=== PATIENT | male | born 1945 | race Caucasian/White ===

== ENCOUNTER → 2016-07-04 | Outpatient (CLI) | payer MEDICARE | LOC: KOH-I 15:01 | DX: R05 Cough (principal); R06.02 Shortness of breath; R09.82 Postnasal drip | CPT/HCPCS: 71020 ==

== ENCOUNTER 2021-07-05 09:00 | Inpatient (IN) | payer OTHER, MEDICARE ==
[~2021-07-05] VITALS: Ht 162.6 cm; Wt 79.4 kg
[2021-07-05 10:42] LABS: HEMOGLOBIN 12.9 gm/dl (14.0-17.5); RED BLOOD COUNT 4.21 M/UL (4.20-5.50); WHITE BLOOD COUNT 9.6 K/UL (4.5-11.0)
[2021-07-05 11:11] LABS: BUN/CREATININE RATIO 5 (0-10)
[2021-07-05] MEDS ORDERED: BUDESONIDE-FO10.2 G1 INH (15:22)
[2021-07-05] MEDS ORDERED: FLONASE 0.05% N16 GM (15:22)
[2021-07-05] MEDS ORDERED: CLOPIDOGREL75 MG PO (15:22)
[2021-07-05] MEDS ORDERED: MONTELUKAST SOD10 MG PO (15:23)
[2021-07-05] MEDS ORDERED: METOPROLOL TAR100 MG PO (15:23)
[2021-07-05] MEDS ORDERED: CLINDAMYCIN PHO30 ML TOP (15:24)
[2021-07-05] MEDS ORDERED: OMEPRAZOLE20 MG PO (15:25)
[2021-07-05] MEDS ORDERED: METRONIDAZOLE45 GM TOP (15:25)
[2021-07-05] MEDS ORDERED: CARBIDOPA-LEVO1 EA14 PO (15:25)
[2021-07-05] MEDS ORDERED: ATORVASTATIN CA80 MG PO (15:26)
[2021-07-05] MEDS ORDERED: PRADAXA150 MG PO (15:26)
[2021-07-05] MEDS ORDERED: COZAAR50 MG PO (15:26)
[2021-07-05] MEDS ORDERED: HYDROCORTISON28.4 G9 TOP (15:27)
[2021-07-05] MEDS ORDERED: IPRAT-ALBUT 0.5-3 ML INH (15:28)
[2021-07-05] MEDS ORDERED: BENZONATATE100 MG PO (15:28)
[2021-07-05] MEDS ORDERED: VITAMIN D325 MCG PO (15:29)
[2021-07-05] MEDS ORDERED: B-121000 MCG PO (15:29)
[2021-07-05] MEDS ORDERED: ASPIRIN EC81 MG PO (15:30)
[2021-07-05] MEDS ORDERED: STIOLTO RESPIMAT4 GM INH (15:30)
[2021-07-06 06:32] LABS: HEMOGLOBIN 11.9 gm/dl (14.0-17.5); RED BLOOD COUNT 3.83 M/UL (4.20-5.50); WHITE BLOOD COUNT 8.5 K/UL (4.5-11.0)
[2021-07-06 07:04] LABS: BUN/CREATININE RATIO 3 (0-10)
[2021-07-06 14:23] LABS: ADENOVIRUS F 40/41 Not Detected (Negative); ASTROVIRUS Not Detected (Negative); CAMPYLOBACTER Not Detected (Negative); CRYPTOSPORIDIUM Not Detected (Negative); E.COLI 0157 Not Detected (Negative); ENTAMOEBA HISTOLYTICA Not Detected (Negative); ENTEROAGGREGATIVE E.COLI (EAEC Not Detected (Negative); ENTEROPATHOGENIC E.COLI (EPEC) Not Detected (Negative); ENTEROTOXIGENIC E.COLI (ETEC) Not Detected (Negative); GIARDIA LAMBLIA Not Detected (Negative); NOROVIRUS GI/GII Not Detected (Negative); PLESIOMONAS SHIGELLOIDES Not Detected (Negative); ROTOVIRUS A Not Detected (Negative); SALMONELLA Not Detected (Negative); SAPOVIRUS Not Detected (Negative); SHIG/ENTEROINVAS.ECOLI (EIEC) Not Detected (Negative); SHIGA-LIK TOX.PRO.E.COLI (STEC Not Detected (Negative); VIBRIO Not Detected (Negative); VIBRIO CHOLERAE Not Detected (Negative); YERSINIA ENTEROCOLITICA Not Detected (Negative)
[2021-07-07 06:07] LABS: RED BLOOD COUNT 3.57 M/UL (4.20-5.50); WHITE BLOOD COUNT 6.7 K/UL (4.5-11.0)
[2021-07-07 06:33] LABS: BUN/CREATININE RATIO 2 (0-10)
--- NOTE | 2021-07-07 10:00 | NUR ---
0800 NOTIFIED THAT PATIENT HAS CRITICAL POTASSIUM OF 2.8. ORDER RECEIVED FOR 80MEQ POTASSIUM PO NOW AND FOLLOW K[facility] PROTOCOL IV.
[2021-07-08 04:19] LABS: HEMOGLOBIN 11.4 gm/dl (14.0-17.5); RED BLOOD COUNT 3.69 M/UL (4.20-5.50); WHITE BLOOD COUNT 6.4 K/UL (4.5-11.0)
[2021-07-08 04:46] LABS: BUN/CREATININE RATIO 1 (0-10)
[2021-07-08] MEDS ORDERED: VANCOMYCIN HCL125 MG PO (12:12)
== END 2021-07-08 13:30 | disposition home or self-care (01) | DRG 373 ==
LOC: ER1 09:00 → MED SURG 4 14:41 → CDU 14:41 → MED SURG 4 20:46
PROVIDERS: Emergency Medicine; Physician Assistant; ADMIT Internal Medicine
DX: A04.72 Enterocolitis due to Clostridium difficile, not specified as recurrent (principal); Z20.822 Contact with and (suspected) exposure to COVID-19; I48.0 Paroxysmal atrial fibrillation; I25.10 Atherosclerotic heart disease of native coronary artery without angina pectoris; J44.9 Chronic obstructive pulmonary disease, unspecified; N28.1 Cyst of kidney, acquired; E78.5 Hyperlipidemia, unspecified; E87.6 Hypokalemia; I10 Essential (primary) hypertension; Z87.442 Personal history of urinary calculi; Z90.49 Acquired absence of other specified parts of digestive tract; Z98.890 Other specified postprocedural states; Z90.89 Acquired absence of other organs; Z95.5 Presence of coronary angioplasty implant and graft; Z88.2 Allergy status to sulfonamides; Z82.49 Family history of ischemic heart disease and other diseases of the circulatory system
CPT/HCPCS: 36415; 71045; 80048; 80053; 81001; 82550; 82553; 83605; 83690; 83735; 84100; 84132; 84484; 85025; 87040; 87324; 87449; 87507; 93005; 94640; 94664; 94760; 96374; 96375; 96376; 99285; G0378; J2270; J2405; J2543; J3475; J3480; J7030; J7040; Q9967; U0002

== ENCOUNTER 2021-07-30 08:06 | Inpatient (IN) | payer OTHER, MEDICARE ==
[~2021-07-30] VITALS: Ht 175.3 cm; Wt 75.0 kg
[~2021-07-30 08:06] MED LIST: ATORVASTATIN CA80 MG PO; B-121000 MCG PO; BENZONATATE100 MG PO; BUDESONIDE-FO10.2 G1 INH; CLINDAMYCIN PHO30 ML TOP; CLOPIDOGREL75 MG PO; COZAAR50 MG PO; FLONASE 0.05% N16 GM; HYDROCORTISON28.4 G9 TOP; METOPROLOL TAR100 MG PO; METRONIDAZOLE45 GM TOP; MONTELUKAST SOD10 MG PO; PRADAXA150 MG PO; VANCOMYCIN HCL125 MG PO; VITAMIN D325 MCG PO
[2021-07-30 08:45] LABS: HEMOGLOBIN 15.6 gm/dl (14.0-17.5); RED BLOOD COUNT 4.84 M/UL (4.20-5.50); WHITE BLOOD COUNT 9.9 K/UL (4.5-11.0)
[2021-07-30 09:12] LABS: BUN/CREATININE RATIO 9 (0-10)
[2021-07-30] MEDS ORDERED: CARBIDOPA-LEVO1 EA14 PO (15:25)
[2021-07-30] MEDS ORDERED: OMEPRAZOLE20 MG PO (15:25)
[2021-07-30] MEDS ORDERED: ALBUTEROL2.5 MG/3 M INH (15:28)
[2021-07-30] MEDS ORDERED: ASPIRIN EC81 MG PO (15:30)
[2021-07-30] MEDS ORDERED: STIOLTO RESPIMAT4 GM INH (15:30)
[2021-07-31 05:13] LABS: BUN/CREATININE RATIO 11 (0-10); HEMOGLOBIN 13.4 gm/dl (14.0-17.5); RED BLOOD COUNT 4.2 M/UL (4.20-5.50); WHITE BLOOD COUNT 21.1 K/UL (4.5-11.0)
[2021-07-31 20:14] LABS: ADENOVIRUS F 40/41 Not Detected (Negative); ASTROVIRUS Not Detected (Negative); CAMPYLOBACTER Not Detected (Negative); CRYPTOSPORIDIUM Not Detected (Negative); E.COLI 0157 Not Detected (Negative); ENTAMOEBA HISTOLYTICA Not Detected (Negative); ENTEROAGGREGATIVE E.COLI (EAEC Not Detected (Negative); ENTEROPATHOGENIC E.COLI (EPEC) Not Detected (Negative); ENTEROTOXIGENIC E.COLI (ETEC) Not Detected (Negative); GIARDIA LAMBLIA Not Detected (Negative); NOROVIRUS GI/GII Not Detected (Negative); PLESIOMONAS SHIGELLOIDES Not Detected (Negative); ROTOVIRUS A Not Detected (Negative); SALMONELLA Not Detected (Negative); SAPOVIRUS Not Detected (Negative); SHIG/ENTEROINVAS.ECOLI (EIEC) Not Detected (Negative); SHIGA-LIK TOX.PRO.E.COLI (STEC Not Detected (Negative); VIBRIO Not Detected (Negative); VIBRIO CHOLERAE Not Detected (Negative); YERSINIA ENTEROCOLITICA Not Detected (Negative)
[2021-08-01 04:33] LABS: HEMOGLOBIN 11.7 gm/dl (14.0-17.5)
[2021-08-01 04:41] LABS: RED BLOOD COUNT 3.69 M/UL (4.20-5.50); WHITE BLOOD COUNT 7.4 K/UL (4.5-11.0)
[2021-08-01 04:56] LABS: BUN/CREATININE RATIO 7 (0-10)
[2021-08-02 07:17] LABS: HEMOGLOBIN 11.8 gm/dl (14.0-17.5); RED BLOOD COUNT 3.64 M/UL (4.20-5.50); WHITE BLOOD COUNT 8.4 K/UL (4.5-11.0)
[2021-08-02 07:25] LABS: BUN/CREATININE RATIO 6 (0-10)
[2021-08-03 02:27] LABS: HEMOGLOBIN 11.2 gm/dl (14.0-17.5); RED BLOOD COUNT 3.54 M/UL (4.20-5.50); WHITE BLOOD COUNT 8.6 K/UL (4.5-11.0)
[2021-08-03 02:51] LABS: BUN/CREATININE RATIO 7 (0-10)
[2021-08-03] MEDS ORDERED: VANCOCIN 125 M125 MG PO (09:35)
[2021-08-03] MEDS ORDERED: ELIQUIS 5 MG TAB5 MG PO (09:35)
[2021-08-03] MEDS ORDERED: MULTAQ 400 MG400 MG PO (09:35)
== END 2021-08-03 13:38 | disposition home or self-care (01) | DRG 280 ==
LOC: ER1 08:06 → CDU 10:08 → PROG CARE 10:08
PROVIDERS: Emergency Medicine; Internal Medicine; Physician Assistant Medical; ADMIT Internal Medicine
PROC: B24BZZZ Ultrasonography of Heart with Aorta (ICD-10-PCS; principal; 2021-07-31)
DX: I48.0 Paroxysmal atrial fibrillation (principal); I21.A1 Myocardial infarction type 2; J15.9 Unspecified bacterial pneumonia; A04.71 Enterocolitis due to Clostridium difficile, recurrent; Z20.822 Contact with and (suspected) exposure to COVID-19; E87.6 Hypokalemia; J44.9 Chronic obstructive pulmonary disease, unspecified; I45.10 Unspecified right bundle-branch block; I10 Essential (primary) hypertension; E78.5 Hyperlipidemia, unspecified; N28.1 Cyst of kidney, acquired; I25.10 Atherosclerotic heart disease of native coronary artery without angina pectoris; Z95.5 Presence of coronary angioplasty implant and graft; Z79.01 Long term (current) use of anticoagulants; Z79.82 Long term (current) use of aspirin; Z87.442 Personal history of urinary calculi; Z90.49 Acquired absence of other specified parts of digestive tract; Z86.010 Personal history of colon polyps; Z88.2 Allergy status to sulfonamides; Z82.49 Family history of ischemic heart disease and other diseases of the circulatory system; Z88.1 Allergy status to other antibiotic agents
CPT/HCPCS: ECHO; 36415; 71045; 71046; 80048; 80053; 82550; 82553; 83735; 84100; 84132; 84484; 85025; 85027; 85610; 85730; 87040; 87086; 87324; 87449; 87507; 93005; 93306; 94640; 94664; 94760; 97165; J1335; J1644; J2405; J2550; J3475; U0002